=== PATIENT | male | born 1970 | race African-American/Black ===

== ENCOUNTER → 2025-03-30 08:26 | Outpatient (REF) | payer BC, SELFPAY ==
[2025-03-30 09:59] LABS: Hematocrit 39.0 % (39.0-52.0); Hemoglobin 12.5 g/dL (13.0-18.0); Mean Corp Hgb Conc. 32.1 g/dL (33.0-37.0); Mean Corpuscular Volume 84.8 fL (80.0-94.0); Nucleated Red Blood Cells % 0 % (-); Platelet Count 192 10^3/uL (130-400); Red Cell Dist. Width 13.1 % (11.5-14.5)
[2025-03-30 10:58] LABS: ALT (SGPT) 32 U/L (0-50); AST (SGOT) 35 U/L (17-59); Albumin 4.5 g/dl (3.5-5.0); Alkaline Phosphatase 71 U/L (38-126); Blood Urea Nitrogen 8 mg/dl (9-20); Calcium 9.0 mg/dl (8.4-10.2); Carbon Dioxide 25 mmol/L (22-30); Chloride 108 mmol/L (98-107); Glucose 98 mg/dl (70-99); HDL Cholesterol 41 mg/dl; LDL Cholesterol, Calculated 123 mg/dl; Potassium 4.7 mmol/L (3.5-5.1); Sodium 140 mmol/L (135-145); Total Protein 7.3 g/dl (6.3-8.2); Very Low Density Lipoprotein 20 mg/dl (0-30); eGFR > 60.00
[2025-03-30 11:30] LABS: Glycohemoglobin (HgbA1c) 5.7 % (4.0-5.6)
[2025-03-30 11:43] LABS: Vitamin D, 25-OH*** 46.8 ng/mL (30-80)
[2025-03-30 11:58] LABS: PSA, Total - Screen 0.49 ng/ml (0.0-4.0)
== END ==
LOC: REG 08:26
PROVIDERS: ATTENDING PHYSICIAN Internal Medicine
DX: I10 Essential (primary) hypertension (principal); Z00.00 Encounter for general adult medical examination without abnormal findings; Z12.5 Encounter for screening for malignant neoplasm of prostate
CPT/HCPCS: 36415; 80053; 80061; 82306; 83036; 84443; 85025; G0103